=== PATIENT | female | born 1955 | race Caucasian/White ===

== ENCOUNTER → 2019-04-28 | Outpatient (CLI) | payer MEDICARE ==
--- NOTE | 2019-04-28 14:56 | RAD ---
EXAM: Skull, 2 views; maximal facial bones, 3 views. HISTORY: Trauma. COMPARISON: None. FINDINGS: 2 views of the skull and 3 views of the maximal facial bones are obtained. No displaced fracture is seen. There is no significant nasal septal deviation. There is no paranasal sinus air-fluid level or opacification. The frontal sinuses are underpneumatized, a normal variant. There is dental amalgam and there are multiple missing teeth. IMPRESSION: No acute osseous finding. Electronically signed by: Lisa Miranda MD (04/28/2019 2:54 PM) [place] [id number]
== END | disposition home or self-care (01) ==
LOC: DXRAD 13:14
PROVIDERS: ATTEND Family Medicine
DX: S09.8XXA Other specified injuries of head, initial encounter (principal); X58.XXXA Exposure to other specified factors, initial encounter; Y93.89 Activity, other specified; Y92.89 Other specified places as the place of occurrence of the external cause; Y99.8 Other external cause status
CPT/HCPCS: 70150; 70250

== ENCOUNTER → 2020-02-14 | Outpatient (CLI) | payer MEDICARE ==
--- NOTE | 2020-02-14 12:03 | RAD ---
PA and lateral views of the chest. Comparison: None. Indication: Hemoptysis Findings: The heart size is enlarged. No pneumothorax or effusion. There is focal airspace disease in the posterior aspect of the right upper lobe. The bony structures are intact. Impression: 1. Posterior segment right upper lobe airspace disease likely blood given history of hemoptysis. Aspiration and pneumonia are also considerations. Electronically signed by: Aj Jacinto MD (02/14/2020 12:00 PM) [id number]
== END | disposition home or self-care (01) ==
LOC: DXRAD 11:38
PROVIDERS: ATTEND Family Medicine
DX: R04.2 Hemoptysis (principal); I51.7 Cardiomegaly; J18.9 Pneumonia, unspecified organism
CPT/HCPCS: 71046

== ENCOUNTER → 2020-02-17 | Outpatient (CLI) | payer MEDICARE ==
--- NOTE | 2020-02-17 15:09 | RAD ---
CHEST PA LATERAL History: Reason: PNEUMONIA, HEMOPYTSIS / Spl. Instructions: / History: Comparison: 02/14/2020. Findings: Frontal and lateral views of the chest were obtained. The cardiomediastinal silhouette is normal. Pulmonary vasculature is normal. Right upper lobe consolidation along the major fissure is present. This is similar to the prior exam. No pleural effusion or pneumothorax is seen. There is no acute bone abnormality. IMPRESSION: Right upper lobe consolidation along the major fissure again seen. No significant change. Follow-up to resolution recommended. No new process. Electronically signed by: Alex De Guzman MD (02/17/2020 3:06 PM) [id number]
[2020-02-17 15:21] LABS: BASO % 1 % (0-3); EOS # 0.1 x10^3/uL (0.0-0.7); EOS % 1 % (0-3); LYMPH # 1.7 x10^3/uL (1.0-4.8); LYMPH % 16 % (24-48); MEAN CORPUSCULAR HEMOGLOBIN 31 pg (25-35); MEAN CORPUSCULAR HGB CONC 34 g/dL (31-37); MEAN CORPUSCULAR VOLUME 92 fL (79-100); MONO # 0.9 x10^3/uL (0.0-1.1); MONO % 8 % (0-9); NEUT # 7.8 x10^3uL (1.8-7.7); NEUT % 75 % (31-73); PLATELET COUNT 384 x10^3/uL (140-400); RED BLOOD COUNT 3.58 x10^6/uL (3.50-5.40); RED CELL DISTRIBUTION WIDTH 13.8 % (11.5-14.5); WHITE BLOOD COUNT 10.5 x10^3/uL (4.0-11.0)
[2020-02-17 15:27] LABS: ALBUMIN 3.1 g/dL (3.4-5.0); ALBUMIN/GLOBULIN RATIO 0.7 (1.0-1.7); CALCIUM 9.6 mg/dL (8.5-10.1); CREATININE 1.4 mg/dL (0.6-1.0); GFR 37.9; POTASSIUM 4.4 mmol/L (3.5-5.1); TOTAL BILIRUBIN 0.2 mg/dL (0.2-1.0); TOTAL PROTEIN 7.7 g/dL (6.4-8.2)
== END | disposition home or self-care (01) ==
LOC: LAB 14:53
PROVIDERS: ATTEND Family Medicine
DX: Z11.59 Encounter for screening for other viral diseases (principal); J18.9 Pneumonia, unspecified organism; R04.2 Hemoptysis
CPT/HCPCS: 36415; 71046; 80053; 85025; U0003